=== PATIENT | male | born 1985 | race Caucasian/White ===

== ENCOUNTER 2017-06-01 13:56 | Emergency (ER) | payer MEDICAID, OTHER ==
[~2017-06-01] VITALS: Ht 190.5 cm; Wt 97.5 kg
--- NOTE | 2017-06-01 14:05 | NUR ---
PT AMBULATORY TO ER BED 17. C/O R SIDE FLANK PAIN X 3-4 DAYS. STATES ON AND OFF PAIN. DENIES DYSURIA. DENIES ANY ABDOMINAL PAIN. AWAITING MD ECHEVARRIA.
--- NOTE | 2017-06-01 14:27 | NUR ---
MIGUELANGEL OBREGON AT BEDSIDE FOR EVAL.
[2017-06-01] MEDS ORDERED: KETOROLAC TROMETHAMINE INJ 60 MG/2 ML VIAL IM ONE ×2 (14:30→15:19)
[2017-06-01 14:50] LABS: BASOPHILS % (AUTO) 0.5 % (0.0-2.0); EOSINOPHILS # (AUTO) 0.1 /CMM (0.0-0.7); EOSINOPHILS % (AUTO) 1.4 % (0.0-6.0); HEMATOCRIT 46 % (39-51); HEMOGLOBIN 15.6 g/dL (13.5-17.5); LYMPHOCYTES # (AUTO) 1.6 /CMM (0.8-4.8); LYMPHOCYTES % (AUTO) 24.8 % (20.0-44.0); MEAN CORPUSCULAR HEMOGLOBIN 30 PG (26.0-33.0); MEAN CORPUSCULAR HGB CONC 34 g/dl (31.0-36.0); MEAN CORPUSCULAR VOLUME 88 fL (80-96); MONOCYTES # (AUTO) 0.5 /CMM (0.1-1.30); MONOCYTES % (AUTO) 7.7 % (2.0-12.0); NEUTROPHILS # (AUTO) 4.2 /CMM (1.8-8.9); NEUTROPHILS % (AUTO) 65.6 % (43.0-81.0); PLATELET COUNT (AUTO) 217 /CMM (150-450); RDW COEFFICIENT OF VARIATION 13.7 (11.5-15.0); WHITE BLOOD COUNT (AUTO) 6.4 K/uL (4.3-11.0)
[2017-06-01 14:51] LABS: CREATININE 1.1 mg/dL (0.6-1.3)
[2017-06-01 15:38] LABS: APPEARANCE,URINE CLEAR (CLEAR); BILIRUBIN,URINE NEGATIVE (NEGATIVE); BLOOD, URINE NEGATIVE Ery/uL (NEGATIVE); COLOR,URINE YELLOW (YELLOW); KETONES,URINE NEGATIVE (NEGATIVE); LEUKOCYTE ESTERASE ,URINE NEGATIVE (NEGATIVE); NITRITE, URINE NEGATIVE (NEGATIVE); PROTEIN,URINE NEGATIVE (NEGATIVE); UGLUCOSE NEGATIVE (NEGATIVE); UROBILINOGEN,URINE 0.2 EU/dL (0.2)
--- NOTE | 2017-06-01 16:31 | NUR ---
Patient discharged to home in stable condition. Written and verbal after care instructions given. Patient verbalizes understanding of instruction.
[2017-06-01 16:32] VITALS: BP 125/65
== END 2017-06-01 16:33 | disposition home or self-care (01) ==
LOC: ER 14:00
DX: R10.9 Unspecified abdominal pain (principal); F10.10 Alcohol abuse, uncomplicated; Z88.0 Allergy status to penicillin
CPT/HCPCS: 36415; 80048-TC; 81000-TC; 85025-TC; A4606; J1885; Z7610

== ENCOUNTER 2019-03-06 19:28 | Emergency (ER) | payer SELFPAY ==
[~2019-03-06] VITALS: Ht 190.5 cm; Wt 104.3 kg
[2019-03-06 20:54] VITALS: BP 143/92
--- NOTE | 2019-03-06 21:25 | NUR ---
Patient discharged to home in stable condition. Written and verbal after care instructions given. Patient verbalizes understanding of instruction. Pt ambulatory with a steady gait
== END 2019-03-06 21:34 | disposition home or self-care (01) ==
LOC: ER 19:28
DX: S90.822A Blister (nonthermal), left foot, initial encounter (principal); S90.821A Blister (nonthermal), right foot, initial encounter; S91.105A Unspecified open wound of left lesser toe(s) without damage to nail, initial encounter; B35.3 Tinea pedis; Z88.0 Allergy status to penicillin; Z60.2 Problems related to living alone; X58.XXXA Exposure to other specified factors, initial encounter; Y93.89 Activity, other specified; Y92.89 Other specified places as the place of occurrence of the external cause; Y99.8 Other external cause status